=== PATIENT | male | born 1945 | race Caucasian/White ===

== ENCOUNTER → 2017-10-17 | Outpatient (CLI) | payer BC ==
[2017-10-17 13:33] LABS: ALBUMIN 3.7 gm/dl (3.4-5.0); ALKALINE PHOSPHATASE 64 U/L (45-117); ALT/SGPT 24 U/L (12-78); AST/SGOT 28 U/L (15-37); BLOOD UREA NITROGEN 19 mg/dl (7-18); CALCIUM 8.6 mg/dl (8.5-10.1); CARBON DIOXIDE 26 mmol/L (21-32); CHOLESTEROL 240 mg/dl (0-200); CREATININE 1.08 mg/dl (0.60-1.40); GLUCOSE 94 mg/dl (70-99); LDL CHOLESTEROL CALCULATED 156 mg/dl; POTASSIUM 4.2 mmol/L (3.5-5.1); SODIUM 137 mmol/L (136-145); TOTAL PROTEIN 7.5 gm/dl (6.4-8.2)
== END | disposition home or self-care (01) ==
LOC: C.LABMFLN 08:40
PROVIDERS: ATTEND Family Medicine
DX: I10 Essential (primary) hypertension (principal); E78.00 Pure hypercholesterolemia, unspecified; E03.9 Hypothyroidism, unspecified

== ENCOUNTER 2020-12-13 12:05 | Observation (INO) ==
--- NOTE | 2020-11-23 14:41 | PAT Medication Instructions ---
Medication Instructions Date of Service November 23, 2020 Home Medications Medication Instructions Recorded cyclobenzaprine 10 mg tablet 10 mg PO DAILY PRN #90 tab 02/11/19 hydrocodone 5 mg-acetaminophen 325 1 tab PO Q8H PRN #14 tab 10/06/20 mg tablet meloxicam 7.5 mg tablet 7.5 mg PO BID PRN #60 tab 10/08/20 tramadol 50 mg tablet 50 mg PO QID PRN #60 tab 11/12/20 cyclobenzaprine 10 mg tablet 10 mg PO DAILY PRN glucosamine sulfate 2KCl 1,000 mg tablet 2,000 mg PO DAILY omega 7-xwb-kny-fish oil 1,000 mg (120 mg-180 mg) capsule 1 cap PO QAM hydrocodone 5 mg-acetaminophen 325 mg tablet 1 tab PO Q8H PRN meloxicam 7.5 mg tablet 7.5 mg PO BID PRN hydrochlorothiazide 25 mg PO QAM levothyroxine 50 mcg PO QAM losartan 100 mg PO QAM tramadol 50 mg tablet 50 mg PO QID PRN ASK your surgeon for instructions meloxicam 7.5 mg tablet 7.5 mg PO BID PRN STOP taking 2 weeks before surgery (or as soon as possible if surgery is within 2 weeks) glucosamine sulfate 2KCl 1,000 mg tablet 2,000 mg PO DAILY omega 6-fkn-lgo-fish oil 1,000 mg (120 mg-180 mg) capsule 1 cap PO QAM DO NOT take the morning of surgery cyclobenzaprine 10 mg tablet 10 mg PO DAILY PRN hydrochlorothiazide 25 mg PO QAM losartan 100 mg PO QAM Take morning of surgery With a small sip of water, OTHERWISE NOTHING TO EAT OR DRINK AFTER MIDNIGHT: hydrocodone 5 mg-acetaminophen 325 mg tablet 1 tab PO Q8H PRN (okay to take up to 4 hours prior to surgery if needed) levothyroxine 50 mcg PO QAM tramadol 50 mg tablet 50 mg PO QID PRN (okay to take up to 4 hours prior to surgery if needed) Take evening before surgery cyclobenzaprine 10 mg tablet 10 mg PO DAILY PRN (if needed) hydrocodone 5 mg-acetaminophen 325 mg tablet 1 tab PO Q8H PRN (if needed) tramadol 50 mg tablet 50 mg PO QID PRN (if needed) Other Notes If you have any questions please call us at [phone] or [phone] or [phone] or [phone]
--- NOTE | 2020-11-25 10:13 | Anesthesiology Consultation ---
Date of Service November 25, 2020 Assessment & Plan (1) Encounter for pre-operative examination: COVID screening: Per assessment on 11/25: Travel screen negative, no known COVID- 19 positive contacts or current COVID-19 related symptoms. Patient vaccinated. Surgeon arranging preop COVID testing. Awaiting results. Chart Review Chart Review: Acceptable Risk for Surgery (pending surgeon-ordered PCP clearance) and Patient seen in Pre Admission Testing Teaching & Discussion Pre-Anesthesia Teaching/Discussion Notes: Instructed NPO after midnight before surgery,except medications with 15 cc of water. Medication instructions provided according to the PAT guidelines. History Surgery Operation Date: 12/13/20 11:10 Proposed Procedures p Right Reversed Total Shoulder Arthroplasty - Lex Tovar MD Height/Weight Height: 5 ft 8 in Weight: 89.2 kg Allergies Allergy/AdvReac Type Severity Reaction Status Date / Time Penicillins Allergy Hives Verified 11/25/20 10:22 Medications Home Medications Medication Instructions Recorded Confirmed Last Taken cyclobenzaprine 10 mg tablet 10 mg PO DAILY PRN #90 tab 02/11/19 11/11/20 Unknown glucosamine sulfate 2KCl 1,000 mg 2,000 mg PO DAILY tab 08/05/19 11/11/20 Unknown tablet omega 3-ily-nsj-fish oil 1,000 mg 1 cap PO QAM 08/05/19 11/11/20 Unknown (120 mg-180 mg) capsule hydrocodone 5 mg-acetaminophen 325 1 tab PO Q8H PRN #14 tab 10/06/20 11/11/20 Unknown mg tablet meloxicam 7.5 mg tablet 7.5 mg PO BID PRN #60 tab 10/08/20 11/11/20 Unknown hydrochlorothiazide 25 mg PO QAM 11/11/20 11/11/20 Unknown levothyroxine 50 mcg PO QAM 11/11/20 11/11/20 Unknown losartan 100 mg PO QAM 11/11/20 11/11/20 Unknown tramadol 50 mg tablet 50 mg PO QID PRN #60 tab 11/12/20 Unknown Past Medical History Medical History Anemia Hx, no known hx blood transfusions Arthritis HTN (hypertension) Hypercholesterolemia Hypothyroidism Parotid mass per records, pt denies RLS (restless legs syndrome) Exercise / Class Metabolic Activity II 4-5 Yardwork/Stairs/Walk up hill (one FS (no CP, no SOB)) Past Family History Family History Grandmother Alzheimer disease Mother Cancer Coronary heart disease Lung cancer Heart disease Hypertension Myocardial infarction Grandfather Rheumatoid arthritis Denies family history of Sudden SIDS (sudden infant syndrome) Ovarian cancer Prostate cancer Diabetes Deep vein thrombosis Osteoporosis Dyslipidemia Cerebral aneurysm Bipolar disorder Clotting disorder Crohn's disease Dementia Depression Kidney disease Osteoarthritis Breast cancer Schizophrenia Congenital kidney disease Gestational diabetes COPD (chronic obstructive pulmonary disease) Colorectal cancer Pulmonary embolism Lung disease Ulcerative colitis Colonic polyp Stroke Asthma Cystic kidney disease Past Surgical History Surgical History H/O colonoscopy History of back surgery lumbar fusion Past Anesthesia History No Hx of Anesthesia Complications and No Family Hx of Anesthesia Complications History of PONV No Hx of PONV and No Hx of Motion Sickness Social History Smoking Status: Never smoker Do You Dip or Chew Tobacco: No Hx Alcohol Use: Yes Alcohol type: wine alcohol intake frequency: a few times a month Hx Substance Use: No substance use type: does not use Review of Systems Patient denies chest pain, shortness of breath, dyspnea on exertion, fever, chills, cough, wheezing, palpitations. Physical Exam Vital Signs VITALS BP 103/58 > BP typically low-normal range per patient's P 51 TEMP 98.3 SP02 94%RA RESP 16 PHYSICAL Full cervical extension range of motion. Full TMJ range of motion. TMD 4 finger breaths Mallampati Score 2 Dentition: intact, worn teeth Lungs: clear throughout to auscultation Cardiac: regular rate and rhythm, no murmurs noted Spine: normal Carotid arteries: negative bruit Extremities: no edema Short vilchis Lab Results Anesthesia Preop Results Results Anesthesia Widget: WBC 7.71 K/uL (4.8-10.8) 11/25/20 Hgb 13.9 g/dL (14.0-18.0) L 11/25/20 Hct 41.8 % (42-52) L 11/25/20 Plt 225 K/uL (130-400) 11/25/20 Na 137 mmol/L (136-145) 11/25/20 K 4.2 mmol/L (3.5-5.1) 11/25/20 Cl 103 mmol/L (98-107) 11/25/20 CO2 32 mmol/L (21-32) 11/25/20 BUN 21 mg/dl (7-18) H 11/25/20 Creat 1.34 mg/dl (0.6-1.4) 11/25/20 Glucose Level 112 mg/dl (70-99) H 11/25/20 PT 10.0 Seconds (9.0-12.0) 11/25/20 PTT 25.9 Seconds (21.0-31.0) 11/25/20 INR 1.0 (0.9-1.1) 11/25/20 HA1c 6.0 % (4.5-5.6) H 11/25/20 Urine Color Yellow 11/25/20 Urine Appearance Clear (Clear) 11/25/20 Urine pH 5.5 (4.5-7.5) 11/25/20 Urine Specific [place] 1.020 (1.000-1.030) 11/25/20 Urine Protein Negative (Negative) 11/25/20 Urine Glucose (UA) Negative (Negative) 11/25/20 Urine Ketones Negative (Negative) 11/25/20 Urine Blood Negative (Negative) 11/25/20 Urine Nitrite Negative (Negative) 11/25/20 Urine Bilirubin Negative (Negative) 11/25/20 Urine Urobilinogen Negative (Negative) 11/25/20 Urine Leukocyte Esterase Negative (Negative) 11/25/20 Blood Type A Positive 11/25/20 Antibody Screen NEGATIVE 11/25/20 Testing Electrocardiogram Date: 11/25/20 Findings: + SB @ (53) Chest X-Ray Date: 11/25/20 FINDINGS: The heart is borderline enlarged. There is no failure. There is no focal pulmonary consolidation. There are no significant pleural effusions. Opacities projected the right lung base and through the hepatic shadow, or to correspond to areas of pleural calcification and rib deformity on the lateral view. IMPRESSION: Borderline cardiomegaly. No evidence of focal pulmonary consolidation. Right basilar opacities which appear to correspond to areas of pleural calcification and rib deformity.
--- NOTE | 2020-12-10 21:55 | History & Physical Report ---
Date of Service December 10, 2020 Assessment & Plan (1) Rotator cuff arthropathy of right shoulder: Plan: Treatment options discussed with patient. He has failed conservative measures. He has significant pain and dysfunction interfering with his daily activities and would like to proceed with surgical intervention. Risks, benefits and alternatives to surgery including but not limited to infection, DVT, pain, stiffness, need for revision surgery, damage to blood vessels, damage to nerves, PE, , were discussed with the patient and they wish to proceed. Plan on right reverse total shoulder arthroplasty at [facility] on 12/13/20. All questions answered. He will follow up post operatively. History of Present Illness Chief Complaint: Right shoulder pain Primary Care Provider: Win De Leon DO 75 year old male with PMHx for HTN, high cholesterol, hypothyroidism, RLS presents with ongoing right shoulder pain. He suffered a fall and had an acute on chronic type injury with a massive retracted rotator cuff tear. He presents for surgical intervention. Patient denies headaches, sweats, fevers, chills, double vision, blurred vision, cough, sore throat, dysphagia, chest pain, sob, wheezing, n/v/d/c, numbness, tingling, fatigue, urinary symptoms, mood disorders. ROS positive for right shoulder pain and stiffness. Allergies Allergy/AdvReac Type Severity Reaction Status Date / Time Penicillins Allergy Hives Verified 11/29/20 13:11 Home Medications Medication Instructions Recorded Confirmed Type cyclobenzaprine 10 mg tablet 10 mg PO DAILY PRN #90 tab 02/11/19 11/29/20 Rx glucosamine sulfate 2KCl 1,000 mg 2,000 mg PO DAILY tab 08/05/19 11/29/20 History tablet (Glucosamine Relief) omega 3-gvp-hle-fish oil 1,000 mg 1 cap PO QAM 08/05/19 11/29/20 History (120 mg-180 mg) capsule (Fish Oil) hydrocodone 5 mg-acetaminophen 325 1 tab PO Q8H PRN #14 tab 10/06/20 11/29/20 Rx mg tablet meloxicam 7.5 mg tablet 7.5 mg PO BID PRN #60 tab 10/08/20 11/29/20 Rx hydrochlorothiazide 25 mg tablet 25 mg PO QAM 11/11/20 11/29/20 History levothyroxine 50 mcg tablet 50 mcg PO QAM 11/11/20 11/29/20 History losartan 100 mg tablet 100 mg PO QAM 11/11/20 11/29/20 History tramadol 50 mg tablet 50 mg PO QID PRN #60 tab 11/12/20 11/29/20 Rx Past Med/Surg History Medical History Anemia Hx, no known hx blood transfusions Arthritis HTN (hypertension) Hypercholesterolemia Hypothyroidism Parotid mass per records, pt denies RLS (restless legs syndrome) Surgical History H/O colonoscopy History of back surgery lumbar fusion Family History Grandmother Alzheimer disease Mother Cancer Coronary heart disease Lung cancer Heart disease Hypertension Myocardial infarction Grandfather Rheumatoid arthritis Denies family history of Sudden SIDS (sudden syndrome) Ovarian cancer Prostate cancer Diabetes Deep vein thrombosis Osteoporosis Dyslipidemia Cerebral aneurysm Bipolar disorder Clotting disorder Crohn's disease Dementia Depression Kidney disease Osteoarthritis Breast cancer Schizophrenia Congenital kidney disease Gestational diabetes COPD (chronic obstructive pulmonary disease) Colorectal cancer Pulmonary embolism Lung disease Ulcerative colitis Colonic polyp Stroke Asthma Cystic kidney disease Social History Smoking Status: Never smoker Second Hand Exposure: No; Hx Alcohol Use: Yes Alcohol type: wine Hx Substance Use: No Preferred Language: Armenian Communication Ability: Effective Visual Impairment: No Limitations Hearing Ability: Normal Acls Specialist Required: No Beliefs That Will Affect Care: None marital status: Current Living Situation: Spouse current occupational status: retired Feels Safe at Home: Yes Childhood Exposure to Second-Hand Smoke: No Diet Comment: regular diet caffeine: Yes (1 cup of coffee) during the past year weight has: remained stable Dental Care, Regularly: Yes Physical Activity Frequency: Does not Exercise Physical Activity Frequency Comment: Hauls wood Seatbelt Use: always Sunscreen Use: No Do you think of yourself as: straight/heterosexual Assistive Devices: Glasses Review of Systems All systems reviewed & are unremarkable except as noted in HPI & below Physical Exam Constitutional: well developed and well nourished; no acute distress Eyes: PERRL, conjunctivae normal, anicteric sclerae ENMT: external ear and nose normal, oropharynx normal Neck: trachea midline, no thyromegaly Respiratory: normal respiratory effort, lungs clear to auscultation Cardiovascular: RRR, no murmur, no edema Musculoskeletal: Right shoulder: Tenderness anterolateral acromion. Crepitation with ROM. Painful active motion. FF to 60 degrees actively, abduction to 60 degrees actively, ER to 80 degrees. Positive impingement signs, cross over, lift off tests. Strength3+/5 ER, 4+/5 IR, 2+/4 abduction and FF. Skin: no rashes, warm and dry Neurologic: patellar DTR's 2+ bilat, sensation intact Psychiatric: A+Ox3, euthymic affect Results & Data ([facility]) Diagnostic Findings Right shoulder MRI demonstrates massive retracted tears of his rotator cuff. Tears to supraspinatus, infraspinatus, and subscapularis. long head biceps tendon tear X-rays demonstrate humeral head elevation. Degenerative changes greater tuberosity. AC joint arthritic change
[~2020-12-13 12:05] MED LIST: ACETAMINOPHEN 500 MG TAB PO SCH; BUPIVACAINE 0.5 % 5 MG/1 ML PF 10ML VIAL ONE; CeleBREX 200 MG CAP PO SCH; FAMOTIDINE 20 MG TAB PO SCH; GABAPENTIN 300 MG CAP PO SCH; LR 15ML/HR IV SCH; METOCLOPRAMIDE HCL 10 MG TABLET PO SCH; TRANEXAMIC ACID 1,000 MG **IV Intra-op IV SCH; TRANEXAMIC ACID 1,000 MG **IV Pre-op IV SCH; VANCOMYCIN HCL 1,250 MG in SODIUM CHLORIDE 0.9% 250 ML IV SCH; dexAMETHasone 4 MG TAB PO SCH
[2020-12-13] MEDS ORDERED: fentaNYL citrate 100 MCG/2 ML VIAL ONE ×2 (12:46→15:23)
[2020-12-13] MEDS ORDERED: fentaNYL citrate 100 MCG/2 ML VIAL IV PRN (13:57)
[2020-12-13] MEDS ORDERED: ONDANSETRON INJ 2 MG/ML 2 ML VIAL IV PRN ×2 (13:57→20:10)
[2020-12-13] MEDS ORDERED: ATROPINE SULFATE 0.1 MG/ML 10ML SYR IV PRN (13:57)
[2020-12-13] MEDS ORDERED: ePHEDrine sulfate 50 MG/ML AMP IV PRN (13:57)
--- NOTE | 2020-12-13 14:47 | History & Physical Bridge Note ---
Date of Service December 13, 2020 History & Physical Bridge Note I have examined the patient, reviewed the History & Physical and in the interval since the performance of the History & Physical I have noted the following changes of clinical significance: no changes noted
[2020-12-13] MEDS ORDERED: MIDAZOLAM HCL 1 MG/ML 2ML VIAL ONE (14:49)
[2020-12-13] MEDS ORDERED: LIDOCAINE 2% 2 ML VIAL/AMP(20MG/ML) INFIL ONE (15:15)
[2020-12-13] MEDS ORDERED: DEXAMETHASONE SOD INJ 4 MG/ML VIAL ONE (15:36)
[2020-12-13] MEDS ORDERED: SUCCINYLCHOLINE CHLORIDE 20 MG/ML 10 ML VIAL IV ONE (15:36)
[2020-12-13] MEDS ORDERED: ROCURONIUM BROMIDE 10 MG/ML 5 ML VIAL IV ONE (15:36)
[2020-12-13] MEDS ORDERED: ONDANSETRON INJ 2 MG/ML 2 ML VIAL ONE (15:36)
[2020-12-13] MEDS ORDERED: ePHEDrine sulfate 50 MG/ML SYR ONE (17:08)
[2020-12-13] MEDS ORDERED: LARYING-O-JET KIT (LTA) ONE (17:08)
--- NOTE | 2020-12-13 19:09 | Operative Report ---
Post Operative Report Pre & Post Diagnosis Operation Date: 12/13/20 14:35 Pre-Op Diagnosis: Osteoarthritis Right Shoulder, rotator cuff arthropathy, irreparable rotator cuff tear, biceps tendon rupture Post-Op Diagnosis: Osteoarthritis Right Shoulder, rotator cuff arthropathy, irreparable rotator cuff tear, biceps tendon rupture I identified the patient and participated in the time-out.: Yes Procedure Operation Date: 12/13/20 14:35 Actual Procedures p Right Reversed Total Shoulder Arthroplasty(Right) - Lex Tovar MD Surgeon Lex Tovar MD Trial Judge Hussein CHRISTENSEN Estimated Blood Loss 45 Findings Consistent with Post-Op Diagnosis Specimens Humeral head Drains 2 Hemovac Anesthesia Type General Regional Complications none Disposition Disposition: Recovery Room Indications 75-year-old male with chronic progressive osteoarthritis with rotator cuff arthropathy shoulder weakness and disability. X-rays demonstrate rotator cuff arthropathy proximal migration of the humerus and hypertrophic AC joint osteoarthritis. MRI demonstrates anterior subluxation of the humerus secondary to a subscapularis tendon tear upper subscapularis with the supraspinatus and infraspinatus rotator cuff tears with retraction. There are glenohumeral osteoarthritic changes. Patient had a ruptured biceps tendon. Description of Procedure The patient was taken to the operating room and anesthetized under regional block and general anesthetic. The patient was positioned on the operating table in a 30 beach chair position with a towel roll under the medial border of the right scapula. The arm was draped free to be able to manipulate the shoulder as needed. The right upper extremity was prepped and draped in usual sterile f ashion. Exam demonstrated crepitation with range of motion. Forward flexion 150 degrees abduction 120 degrees external rotation 80 degrees. An anterior deltopectoral approach was performed. A longitudinal incision was made in the deltopectoral interval. The skin was incised sharply. Subcutaneous flaps were elevated off the fascia. The cephalic vein was dissected out and retracted lateral with the deltoid. The clavipectoral fascia was divided at the lateral margin of the conjoined tendon and extended up to the CA ligament. The following findings were noted: There was a large bursal collection in the subacromial space extending over the anterior subscapularis. There was some scarred biceps tendon still in the groove but was ruptured proximally. The lower 55% of the subscapularis was still intact. The upper subscapularis tendon was ruptured and this extended to a large superior rotator cuff tear both the supraspinatus and the infraspinatus which were retracted medially. There were arthritic changes in the glenohumeral joint with proximal migration of the humerus.. The upper centimeter of the pectoralis was released for inferior exposure. The subscapularis tendon was taken down off the lesser tuberosity using a subperiosteal peel type dissection. A #1 Vicryl traction suture was placed into the free end of the subscapularis tendon and capsule. The circumflex vessels were identified tied off with silk ties and divided laterally. The subscapularis tendon was then taken down off of the lesser tuberosity subperiosteally and subperiosteal dissection was performed along the neck of the humerus as the arm is gradually externally rotated exposing the humeral head. The rotator interval was released down to the level of the glenoid. The humeral head findings demonstrated arthritic changes mainly superior on the head from proximal migration but inferiorly there were no osteophytes.. A Fukuda retractor was placed into the joint retracting the humeral head posterior. Glenoid findings demonstrated grade 2 osteoarthritis intact articular cartilage on the glenoid. The labrum was resected. an anterior-inferior and posterior inferior capsular release were performed with electrocautery and a John elevator on bone. Attention was then taken to the humeral preparation. The cutting guide was placed into the humeral head. It was positioned at 20 of retroversio n. Oscillating saw was used to resect the humeral head giving the cut above the level of the posterior rotator cuff insertion site. The humerus was then prepared for the stem. I used the [facility]. The sizing broaches were used followed by trial broaches up to a size 5B which had the appropriate fit and fill. The appropriate sized cut protector was placed. The humerus was then retracted posterior to the glenoid. The glenoid was sized for a 29 baseplate. The guide for the baseplate was positioned in a 10 inferior tilt and the central drill hole was made. The reamer for the 29 baseplate was used. The central drill was widened for the peg. The aequalis hydroxyapatite- coated 29 mm baseplate was impacted into position. The base plate was transfixed with superior and inferior locking screws and anterior and posterior compression screws with stable fixation. The fan reamer was used for the 42 millimeter glenoid sphere. After irrigation the 42 mm glenoid sphere was impacted onto the baseplate and the screw was tightened. Attention was taken back to the humerus. The cut protector was removed and the +0 high offset humeral tray trial was assembled to the trial stem rotated appropriately to get bony coverage and then screwed in position. A trial reduction was performed. A +6, 42 trial insert demonstrated good stability and no shuck. The trials were removed. 3 drill holes are made into the harder bone in the bicipital groove area and 3 #5 FiberWire sutures were placed transosseously. The canal was irrigated with pulsatile lavage saline solution. The final component was assembled. The final component was ascend flex 5B long PTC stem assembled to the plus or high offset tray with a 42+6 reversed insert. This was then impacted into the humerus with a tight press-fit. It was reduced to the glenoid sphere. Stability was verified. Subscapularis was repaired with the #5 FiberWire sutures using Abrahan-Cleve suture technique. Lateral row soft tissue repair was performed with #2 FiberWire [id number] sutures. The pectoralis was repaired with #2 FiberWire [id number] sutures. The arm was taken through a range of motion which demonstrated 150 degrees forward flexion 80 degrees abduction 55 to 60 degrees of external rotation. The implant was stable through the range of motion tested. The wound was copiously irrigated. 2 H emovac drains were placed. The deltopectoral interval was closed with [id number] #1 Vicryl sutures. The subcutaneous tissues were closed with 2- 0 Vicryl sutures. The skin was closed with iain. Sterile dressings were applied and a shoulder immobilizer. Hussein CHRISTENSEN my physician purchasing administrative assistant assisted in the procedure to the entire procedure including patient positioning arm positioning prepping and draping soft tissue retraction instrument management suture management and performed the subcutaneous and skin closure and will participate in the postoperative care of the patient. I attest to the content of the Intraoperative Record and any orders documented therein. Any exceptions are noted below.
--- NOTE | 2020-12-13 19:53 | Anesthesiology Progress Note ---
Date of Service December 13, 2020 Anesthesia Post Procedure Vital Signs Vital Signs: Temp Pulse Pulse Resp BP Pulse Ox 12/13/20 19:45 36.2 C L 79 20 162/99 H 96 12/13/20 19:35 84 12 170/92 H 94 12/13/20 19:25 85 15 177/97 H 99 12/13/20 19:15 88 14 172/86 H 97 12/13/20 19:05 36.2 C L 93 H 20 179/77 H 98 12/13/20 16:28 57 L 20 121/66 98 12/13/20 16:20 55 L 20 130/66 98 12/13/20 16:10 56 L 20 123/71 97 12/13/20 16:00 58 L 22 104/60 98 12/13/20 15:50 72 22 104/60 97 12/13/20 15:40 57 L 22 108/61 97 12/13/20 15:30 56 L 20 117/66 99 12/13/20 12:46 36.9 C 62 20 177/84 H 94 Transfer of Care Handoff Completed per policy Notes Mental Status: alert / awake / arousable and participated in evaluation Patient Amnestic to Procedure: Yes Nausea / Vomiting: adequately controlled Pain: adequately controlled Airway Patency, RR, SpO2: stable & adequate BP & HR: stable & adequate Hydration State: stable & adequate Anesthetic Complications: no major complications apparent
[2020-12-13] MEDS ORDERED: HYDROCODONE/ACETAMOPHEN 5/325MG TAB PO PRN (20:10)
[2020-12-13] MEDS ORDERED: VANCOMYCIN CONSULT ACTIVE PRN (20:10)
[2020-12-13] MEDS ORDERED: bisacodyL 10 MG SUPP PR PRN (20:10)
[2020-12-13] MEDS ORDERED: HYDROmorphone INJ 0.5 MG/0.5 ML SYR IV PRN (20:10)
[2020-12-13] MEDS ORDERED: MAGNESIUM HYDROXIDE SUSP 30 ML UDC PO PRN (20:10)
[2020-12-13] MEDS ORDERED: SODIUM CHLORIDE 0.9% 1000ML 1,000 ML IV SCH (20:10)
[2020-12-13] MEDS ORDERED: NALOXONE HCL 0.4 MG/1 ML VIAL/CARP IV PRN (20:10)
[2020-12-13] MEDS ORDERED: SENNA 8.6 MG TAB PO SCH (21:00)
[2020-12-13] MEDS: KETOROLAC TROMETHAMINE 15 MG/ML VIAL IV SCH (21:32)
[2020-12-13] MEDS: DOCUSATE SODIUM 100 MG CAP PO SCH (21:32)
--- NOTE | 2020-12-13 21:50 | XRay Report ---
XR shoulder RT min 2V routine CLINICAL HISTORY: Post shoulder surgery COMPARISON: None. DISCUSSION: Metallic prosthetic joint is seen projecting to the anatomical region of the right shoulder. Surgical drain and skin iain are seen. Degenerative changes of acromioclavicular joint are seen. Moderate right pleural effusion associated with atelectasis/infiltrate at the right base is seen. IMPRESSION: 1. Postoperative changes as detailed above. 2. Moderate right pleural effusion associated with atelectasis/infiltrate at the right base. ACT 112: Negative or not required by law. The above report was generated using voice recognition software. It may contain grammatical, syntax o r spelling errors. Electronically signed by: Keira Prince DO 12/13/2020 9:49 PM
[2020-12-14] MEDS ORDERED: VANCOMYCIN HCL 1,250 MG in SODIUM CHLORIDE 0.9% 250 ML IV SCH (01:00)
[2020-12-14] MEDS: KETOROLAC TROMETHAMINE 15 MG/ML VIAL IV SCH ×2 (04:20→08:48)
[2020-12-14] MEDS ORDERED: LEVOTHYROXINE SODIUM 50 MCG TABLET PO SCH (06:30)
[2020-12-14 06:57] LABS: Hematocrit (blood only) 37.3 % (42-52); Hemoglobin 12.5 g/dL (14.0-18.0); Immature Granulocytes # (auto) 0.03 K/uL (0.00-0.02); Immature Granulocytes % (auto) 0.2 %; Lymphocytes % (auto) 5.1 %; Mean Corpuscular Hemoglobin 30.3 pg (25-34); Mean Corpuscular Hgb Conc 33.5 g/dL (32-36); Mean Corpuscular Volume 90.5 fL (80-100); Mean Platelet Volume 10.7 fL (7.4-10.4); Monocytes # (auto) 0.67 K/uL (0.11-0.59); Monocytes % (auto) 4.3 %; Neutrophils # (auto) 14.23 K/uL (1.4-6.5); Neutrophils % (auto) 90.4 %; Platelet Count 195 K/uL (130-400); RDW Coefficient of Variation 12.8 % (11.5-14.5); RDW Standard Deviation 42.6 fL (36.4-46.3); Red Blood Count 4.12 M/uL (4.7-6.1); White Blood Count 15.73 K/uL (4.8-10.8)
[2020-12-14 07:26] LABS: BUN Creatinine Ratio 19.5 (10-20); Calcium 8.4 mg/dl (8.5-10.1); Creatinine Clr Calc Pharmacy 53.6 ml/min; Est GFR (African American) 62.3 ml/min; Est GFR (Non-African American) 53.8 ml/min; Potassium 3.7 mmol/L (3.5-5.1)
--- NOTE | 2020-12-14 07:46 | Orthopedic Progress Note ---
Date of Service December 14, 2020 Assessment & Plan (1) Rotator cuff arthropathy of right shoulder: Plan: Postop day 1 status post right reverse total shoulder arthroplasty PT/OT protocols. Nonweightbearing on the right upper extremity. No formal physical therapy at this time other than shoulder shrugs, pendulum exercises etc. DVT prophylaxis-aspirin p.o. daily, SCDs. Pain management as written. Mild leukocytosis. Patient is asymptomatic at this time. Likely secondary to preoperative steroids and or surgical stress. DC planning-patient is planning for discharge to home. No formal therapy to start until patient seen in office for his follow-up visit. Admission and Anticipated Discharge Date Admission Date: December 13, 2020 Subjective Postop day 1 Patient is currently sitting up in his chair at the bedside. Awake and alert. No complaints. States he feels his block is still working. Denies shortness of breath, chest pain, lightheadedness. Physical Exam Physical Exam: Dressings are clean, dry, and intact. Hemovac drain present and functioning. 50 mL from the previous shift. Patient states he is having some difficulty moving the arm however he has better range of motion of his right wrist and fingers this morning. 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 Cap refill is less than 2 seconds. Sling is in place. Results & Data ([facility]) Vital Signs (Past 12 Hours) Vital Signs Temp Pulse Pulse Resp BP Pulse Ox 12/14/20 07:14 36.4 C L 74 17 138/79 95 12/14/20 02:33 36.4 C L 75 16 136/76 92 12/13/20 23:14 36.7 C 76 16 115/67 92 12/13/20 22:05 36.3 C L 75 16 145/65 H 97 12/13/20 21:05 36.4 C L 81 16 145/78 H 93 12/13/20 20:48 36.5 C 71 18 137/76 93 12/13/20 20:05 36.5 C 94 H 18 168/81 H 95 12/13/20 19:45 36.2 C L 79 20 162/99 H 96 Diagnostic Findings Laboratory Results WBC 15.73 K/uL (4.8-10.8) H 12/14/20 06:21 RBC 4.12 M/uL (4.7-6.1) L 12/14/20 06:21 Hgb 12.5 g/dL (14.0-18.0) L 12/14/20 06:21 Hct 37.3 % (42-52) L 12/14/20 06:21 MCV 90.5 fL (80-100) 12/14/20 06:21 MCH 30.3 pg (25-34) 12/14/20 06:21 MCHC 33.5 g/dL (32-36) 12/14/20 06:21 RDW Std Deviation 42.6 fL (36.4-46.3) 12/14/20 06:21 RDW Coeff of Jc 12.8 % (11.5-14.5) 12/14/20 06:21 Plt Count 195 K/uL (130-400) 12/14/20 06:21 MPV 10.7 fL (7.4-10.4) H 12/14/20 06:21 Immature Gran % (Auto) 0.2 % 12/14/20 06:21 Neut % (Auto) 90.4 % 12/14/20 06:21 Lymph % (Auto) 5.1 % 12/14/20 06:21 Thayer % (Auto) 4.3 % 12/14/20 06:21 Eos % (Auto) 0.0 % 12/14/20 06:21 Baso % (Auto) 0.0 % 12/14/20 06:21 Neut # (Auto) 14.23 K/uL (1.4-6.5) H 12/14/20 06:21 Lymph # (Auto) 0.80 K/uL (1.2-3.4) L 12/14/20 06:21 Thayer # (Auto) 0.67 K/uL (0.11-0.59) H 12/14/20 06:21 Eos # (Auto) 0.00 K/uL (0-0.5) 12/14/20 06:21 Baso # (Auto) 0.00 K/uL (0-0.2) 12/14/20 06:21 Immature Gran # (Auto) 0.03 K/uL (0.00-0.02) H 12/14/20 06:21 Sodium 138 mmol/L (136-145) 07/20/21 06:21 Potassium 3.7 mmol/L (3.5-5.1) 12/14/20 06:21 Chloride 104 mmol/L (98-107) 12/14/20 06:21 Carbon Dioxide 25 mmol/L (21-32) 12/14/20 06:21 Anion Gap 9.0 (3-11) 12/14/20 06:21 BUN 25 mg/dl (7-18) H 12/14/20 06:21 Creatinine 1.30 mg/dl (0.6-1.4) 12/14/20 06:21 Est Cr Clr Drug Dosing 53.6 ml/min 12/14/20 06:21 Est GFR ( Amer) 62.3 ml/min 12/14/20 06:21 Est GFR (Non-Af Amer) 53.8 ml/min 12/14/20 06:21 BUN/Creatinine Ratio 19.5 (10-20) 12/14/20 06:21 Glucose 145 mg/dl (70-99) H 12/14/20 06:21 Calcium 8.4 mg/dl (8.5-10.1) L 12/14/20 06:21 COVID-19 Eval Order Covid19 IDNow [facility] 12/13/20 Unknown SARS-CoV-2, RNA, NAAT NEGATIVE (NEGATIVE) 12/13/20 Unknown Impressions Shoulder X-Ray 12/13/20 19:13 XR shoulder RT min 2V routine CLINICAL HISTORY: Post shoulder surgery COMPARISON: None. DISCUSSION: Metallic prosthetic joint is seen projecting to the anatomical region of the right shoulder. Surgical drain and skin iain are seen. Degenerative changes of acromioclavicular joint are seen. Moderate right pleural effusion associated with atelectasis/infiltrate at the right base is seen. IMPRESSION: 1. Postoperative changes as detailed above. 2. Moderate right pleural effusion associated with atelectasis/infiltrate at the right base. ACT 112: Negative or not required by law. The above report was generated using voice recognition software. It may contain grammatical, syntax or spelling errors. Electronically signed by: Keira Prince DO 12/13/2020 9:49 PM
[2020-12-14] MEDS: DOCUSATE SODIUM 100 MG CAP PO SCH (08:46)
[2020-12-14] MEDS ORDERED: hydroCHLOROthiazide 25 MG TAB PO SCH (09:00)
[2020-12-14] MEDS ORDERED: ASPIRIN 325 MG ECTAB PO SCH (09:00)
[2020-12-14] MEDS ORDERED: MULTIVITAMIN TAB PO SCH (09:00)
[2020-12-14] MEDS ORDERED: LOSARTAN POTASSIUM 50 MG TAB PO SCH (09:00)
--- NOTE | 2020-12-14 11:06 | Hospitalist Consultation ---
Date of Consultation December 14, 2020 Assessment & Plan (1) Rotator cuff tear: POD #1 for right revised total shoulder arthroplasty, continue postoperative management per primary team (2) Gait difficulty: Will consider physical therapy prior to discharge to assess potential gait abnormality. (3) RLS (restless legs syndrome): I do not see any medications in his outpatient list that would be specific further this medical issue. Can continue outpatient follow-up for this particular issue. (4) Hypothyroidism: Continue levothyroxine 50 mcg daily (5) Hypercholesterolemia: Patient is on fish oil 1 capsule daily. Status similar is not noted on his medication list. As above, can follow as an outpatient. (6) HTN (hypertension): Patient is only on hydrochlorothiazide for this issue. Last blood pressure documented 121/71, continue to monitor and adjust medications as necessary. Thank you for the consult, will continue to follow while the patient remains here in the hospital. History of Present Illness Reason for Consultation: Medical management Requesting Physician: Guy Attending Physician: Lex Tovar MD History of Present Illness This is a 75-year-old male with past medical history of RLS, hypothyroidism, hypertension, hypercholesterolemia that presented for elective total right shoulder arthroplasty with Dr. Tovar. This was performed 12/13. Our service was consulted for medical management. Patient was seen and examined today in his room. He tells me that the pain in his right extremity is minimal he is otherwise doing well. I did discuss his medical issues with him but he is a somewhat poor historian. His main concern is that he is expressed some unsteadiness with his gait. He attributes this for his previous fall that started his right shoulder injury. He denies any chest p ain, shortness of breath, nausea, vomiting, vertigo, headache, fever or chills. Allergies Allergy/AdvReac Type Severity Reaction Status Date / Time Penicillins Allergy Hives Verified 12/13/20 12:40 Home Medications Medication Instructions Recorded Confirmed Type cyclobenzaprine 10 mg tablet 10 mg PO DAILY PRN #90 tab 02/11/19 12/13/20 Rx glucosamine sulfate 2KCl 1,000 mg 2,000 mg PO DAILY tab 08/05/19 12/13/20 History tablet (Glucosamine Relief) omega 0-stw-ryu-fish oil 1,000 mg 1 cap PO QAM 08/05/19 12/13/20 History (120 mg-180 mg) capsule (Fish Oil) hydrocodone 5 mg-acetaminophen 325 1 tab PO Q8H PRN #14 tab 10/06/20 12/13/20 Rx mg tablet meloxicam 7.5 mg tablet 7.5 mg PO BID PRN #60 tab 10/08/20 12/13/20 Rx hydrochlorothiazide 25 mg tablet 25 mg PO QAM 11/11/20 12/13/20 History levothyroxine 50 mcg tablet 50 mcg PO QAM 11/11/20 12/13/20 History losartan 100 mg tablet 100 mg PO QAM 11/11/20 12/13/20 History aspirin 325 mg tablet,delayed 325 mg PO QAM 30 Days #30 tab 12/14/20 Rx release (Ecotrin) hydrocodone 5 mg-acetaminophen 325 1 - 2 tab PO Q6H PRN #30 tab MDD 8 12/14/20 Rx mg tablet tabs polyethylene glycol 3350 17 gram 17 g PO DAILY PRN #5 ea 12/14/20 Rx oral powder packet (Miralax) Patient History Medical History Anemia Hx, no known hx blood transfusions Arthritis HTN (hypertension) Hypercholesterolemia Hypothyroidism Parotid mass per records, pt denies RLS (restless legs syndrome) Surgical History H/O colonoscopy History of back surgery lumbar fusion Family History Grandmother Alzheimer disease Mother Cancer Coronary heart disease Lung cancer Heart disease Hypertension Myocardial infarction Grandfather Rheumatoid arthritis Denies family history of Sudden SIDS (sudden infant syndrome) Ovarian cancer Prostate cancer Diabetes Deep vein thrombosis Osteoporosis Dyslipidemia Cerebral aneurysm Bipolar disorder Clotting disorder Crohn's disease Dementia Depression Kidney disease Osteoarthritis Breast cancer Schizophrenia Congenital kidney disease Gestational diabetes COPD (chronic obstructive pulmonary disease) Colorectal cancer Pulmonary embolism Lung disease Ulcerative colitis Colonic polyp Stroke Asthma Cystic kidney disease Social History Smoking Status: Never smoker Second Hand Exposure: No; Do You Dip or Chew Tobacco: No; Tobacco Cessation Education Requested by Patient: No Hx Alcohol Use: Yes Alcohol type: wine Hx Substance Use: No Preferred Language: Belarusian Communication Ability: Effective Visual Impairment: No Limitations Hearing Ability: Normal Transfer Specialist Required: No Beliefs That Will Affect Care: None marital status: Current Living Situation: Spouse current occupational status: retired Other Information That Helps Us Care for You: No Feels Safe at Home: Yes Safety Concerns: Feels Safe At This Time Childhood Exposure to Second-Hand Smoke: No Diet Comment: regular diet caffeine: Yes (1 cup of coffee) during the past year weight has: remained stable Dental Care, Regularly: Yes Physical Activity Frequency: Does not Exercise Physical Activity Frequency Comment: HaENOVIX wood Seatbelt Use: always Sunscreen Use: No Do you think of yourself as: straight/heterosexual Assistive Devices: Glasses Review of Systems Constitutional: no fever, no chills, no weakness, no weight loss and no weight gain Eyes: as per Subjective / HPI Respiratory: no cough, no chest congestion, no dyspnea and no dyspnea on exertion Cardiovascular: no chest pain, no orthopnea, no palpitations, no lightheadedness and no edema Gastrointestinal: no abdominal pain, no nausea, no vomiting, no constipation and no diarrhea/loose stools Musculoskeletal: no back pain, no neck pain, no joint pain, no stiffness and no myalgia Integumentary: no rash Neurologic: + unsteadiness; no gait abnormality, no falls and no generalized weakness Results & Data Results & Data ([facility]) Vital Signs (Past 12 Hours) Vital Signs Temp Pulse Resp BP Pulse Ox 12/14/20 07:14 36.4 C L 74 17 138/79 95 12/14/20 02:33 36.4 C L 75 16 136/76 92 12/13/20 23:14 36.7 C 76 16 115/67 92 Laboratory Results Laboratory Results WBC 15.73 K/uL (4.8-10.8) H 12/14/20 06:21 RBC 4.12 M/uL (4.7-6.1) L 12/14/20 06:21 Hgb 12.5 g/dL (14.0-18.0) L 12/14/20 06:21 Hct 37.3 % (42-52) L 12/14/20 06:21 MCV 90.5 fL (80-100) 12/14/20 06:21 MCH 30.3 pg (25-34) 12/14/20 06:21 MCHC 33.5 g/dL (32-36) 12/14/20 06:21 RDW Std Deviation 42.6 fL (36.4-46.3) 12/14/20 06:21 RDW Coeff of Jc 12.8 % (11.5-14.5) 12/14/20 06:21 Plt Count 195 K/uL (130-400) 12/14/20 06:21 MPV 10.7 fL (7.4-10.4) H 12/14/20 06:21 Immature Gran % (Auto) 0.2 % 12/14/20 06:21 Neut % (Auto) 90.4 % 12/14/20 06:21 Lymph % (Auto) 5.1 % 12/14/20 06:21 Grand % (Auto) 4.3 % 12/14/20 06:21 Eos % (Auto) 0.0 % 12/14/20 06:21 Baso % (Auto) 0.0 % 12/14/20 06:21 Neut # (Auto) 14.23 K/uL (1.4-6.5) H 12/14/20 06:21 Lymph # (Auto) 0.80 K/uL (1.2-3.4) L 12/14/20 06:21 Grand # (Auto) 0.67 K/uL (0.11-0.59) H 12/14/20 06:21 Eos # (Auto) 0.00 K/uL (0-0.5) 12/14/20 06:21 Baso # (Auto) 0.00 K/uL (0-0.2) 12/14/20 06:21 Immature Gran # (Auto) 0.03 K/uL (0.00-0.02) H 12/14/20 06:21 Sodium 138 mmol/L (136-145) 12/14/20 06:21 Potassium 3.7 mmol/L (3.5-5.1) 12/14/20 06:21 Chloride 104 mmol/L (98-107) 12/14/20 06:21 Carbon Dioxide 25 mmol/L (21-32) 12/14/20 06:21 Anion Gap 9.0 (3-11) 12/14/20 06:21 BUN 25 mg/dl (7-18) H 12/14/20 06:21 Creatinine 1.30 mg/dl (0.6-1.4) 12/14/20 06:21 Est Cr Clr Drug Dosing 53.6 ml/min 12/14/20 06:21 Est GFR ( Amer) 62.3 ml/min 12/14/20 06:21 Est GFR (Non-Af Amer) 53.8 ml/min 12/14/20 06:21 BUN/Creatinine Ratio 19.5 (10-20) 12/14/20 06:21 Glucose 145 mg/dl (70-99) H 12/14/20 06:21 Calcium 8.4 mg/dl (8.5-10.1) L 12/14/20 06:21 COVID-19 Eval Order Covid19 IDNow [facility] 12/13/20 Unknown SARS-CoV-2, RNA, NAAT NEGATIVE (NEGATIVE) 12/13/20 Unknown Impressions Shoulder X-Ray 12/13/20 19:13 XR shoulder RT min 2V routine CLINICAL HISTORY: Post shoulder surgery COMPARISON: None. DISCUSSION: Metallic prosthetic joint is seen projecting to the anatomical region of the right shoulder. Surgical drain and skin iain are seen. Degenerative changes of acromioclavicular joint are seen. Moderate right pleural effusion associated with atelectasis/infiltrate at the right base is seen. IMPRESSION: 1. Postoperative changes as detailed above. 2. Moderate right pleural effusion associated with atelectasis/infiltrate at the right base. ACT 112: Negative or not required by law. The above report was generated using voice recognition software. It may contain grammatical, syntax or spelling errors. Electronically signed by: Keira Prince DO 12/13/2020 9:49 PM PG Care Time/CCT Total # of Minutes Spent Total Time Spent with Patient: Total time spent is greater than 50% in coordination of care (as documented) at patient's floor/unit and/or counseling patient: Coding Level of Care Code 32184 Inpt Consult Level 3 Diagnoses RLS (restless legs syndrome) G25.81 Hypothyroidism E03.9 Hypercholesterolemia E78.00 HTN (hypertension) I10 Rotator cuff tear M75.100 Gait difficulty R26.9
--- NOTE | 2020-12-19 09:21 | Discharge Summary ---
Date of Service December 19, 2020 Admission HPI Per Admitting Provider 75 year old male with PMHx for HTN, high cholesterol, hypothyroidism, RLS presents with ongoing right shoulder pain. He suffered a fall and had an acute on chronic type injury with a massive retracted rotator cuff tear. He presents for surgical intervention. Patient denies headaches, sweats, fevers, chills, double vision, blurred vision, cough, sore throat, dysphagia, chest pain, sob, wheezing, n/v/d/c, numbness, tingling, fatigue, urinary symptoms, mood disorders. ROS positive for right shoulder pain and stiffness. Admission Exam Per Admitting Provider Physical Exam Constitutional: well developed and well nourished; no acute distress Eyes: PERRL, conjunctivae normal, anicteric sclerae ENMT: external ear and nose normal, oropharynx normal Neck: trachea midline, no thyromegaly Respiratory: normal respiratory effort, lungs clear to auscultation Cardiovascular: RRR, no murmur, no edema Musculoskeletal: Right shoulder: Tenderness anterolateral acromion. Crepitation with ROM. Painful active motion. FF to 60 degrees actively, abduction to 60 degrees actively, ER to 80 degrees. Positive impingement signs, cross over, lift off tests. Strength3+/5 ER, 4+/5 IR, 2+/4 abduction and FF. Skin: no rashes, warm and dry Neurologic: patellar DTR's 2+ bilat, sensation intact Psychiatric: A+Ox3, euthymic affect Principal Diagnosis Right shoulder Rotator cuff arthropathy Discharge Data Allergies Allergy/AdvReac Type Severity Reaction Status Date / Time Penicillins Allergy Hives Verified 12/13/20 12:40 Consultations 12/08/20 15:33 Consult Hospitalist Routine Procedures Performed Operation Date: 12/13/20 14:35 Actual Procedures p Right Reversed Total Shoulder Arthroplasty(Right) - Lex Tovar MD Ordered Studies 12/13/20 05:00 US - OR guided needle placemen Routine Hospital Course (1) Rotator cuff arthropathy of right shoulder: Addendum (Blank) Addendum December 14, 2020 16:20 noted on review of imaging that patient may have a mild/mod R pleural effusion as seen on dedicated xray of shoulder. does not appear on previous studies including CXR from earlier in the month. patient was doing well according to PA- C from primary service. denied any SOB or CP, sats of 96% on RA. unclear what is cause, should consider dedicated CXR, maybe CT of chest depending on findings. ok to follow with PCP for this. i did discuss with ortho FRANCESCA that will coordinate outpatient imaging and FU with primary. Date of Service December 14, 2020 Assessment & Plan (1) Rotator cuff arthropathy of right shoulder: Plan: Postop day 1 status post right reverse total shoulder arthroplasty PT/OT protocols. Nonweightbearing on the right upper extremity. No formal physical therapy at this time other than shoulder shrugs, pendulum exercises etc. DVT prophylaxis-aspirin p.o. daily, SCDs. Pain management as written. Mild leukocytosis. Patient is asymptomatic at this time. Likely secondary to preoperative steroids and or surgical stress. DC planning-patient is planning for discharge to home. No formal therapy to start until patient seen in office for his follow-up visit. Admission and Anticipated Discharge Date Admission Date: December 13, 2020 Subjective Postop day 1 Patient is currently sitting up in his chair at the bedside. Awake and alert. No complaints. States he feels his block is still working. Denies shortness of breath, chest pain, lightheadedness. Physical Exam Physical Exam: Dressings are clean, dry, and intact. Hemovac drain present and functioning. 50 mL from the previous shift. Patient states he is having some difficulty moving the arm however he has better range of motion of his right wrist and fingers this morning. 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 Cap refill is less than 2 seconds. [address]ling is in place. Results & Data ([facility]) Vital Signs (Past 12 Hours) Vital Signs Temp Pulse Pulse Resp BP Pulse Ox 12/14/20 07:14 36.4 C L 74 17 138/79 95 12/14/20 02:33 36.4 C L 75 16 136/76 92 12/13/20 23:14 36.7 C 76 16 115/67 92 12/13/20 22:05 36.3 C L 75 16 145/65 H 97 12/13/20 21:05 36.4 C L 81 16 145/78 H 93 12/13/20 20:48 36.5 C 71 18 137/76 93 12/13/20 20:05 36.5 C 94 H 18 168/81 H 95 12/13/20 19:45 36.2 C L 79 20 162/99 H 96 Diagnostic Findings Laboratory Results WBC 15.73 K/uL (4.8-10.8) H 12/14/20 06:21 RBC 4.12 M/uL (4.7-6.1) L 12/14/20 06:21 Hgb 12.5 g/dL (14.0-18.0) L 12/14/20 06:21 Hct 37.3 % (42-52) L 12/14/20 06:21 MCV 90.5 fL (80-100) 12/14/20 06:21 MCH 30.3 pg (25-34) 12/14/20 06:21 MCHC 33.5 g/dL (32-36) 12/14/20 06:21 RDW Std Deviation 42.6 fL (36.4-46.3) 12/14/20 06:21 RDW Coeff of Jc 12.8 % (11.5-14.5) 12/14/20 06:21 Plt Count 195 K/uL (130-400) 12/14/20 06:21 MPV 10.7 fL (7.4-10.4) H 12/14/20 06:21 Immature Gran % (Auto) 0.2 % 12/14/20 06:21 Neut % (Auto) 90.4 % 12/14/20 06:21 Lymph % (Auto) 5.1 % 12/14/20 06:21 Gordon % (Auto) 4.3 % 12/14/20 06:21 Eos % (Auto) 0.0 % 12/14/20 06:21 Baso % (Auto) 0.0 % 12/14/20 06:21 Neut # (Auto) 14.23 K/uL (1.4-6.5) H 12/14/20 06:21 Lymph # (Auto) 0.80 K/uL (1.2-3.4) L 12/14/20 06:21 Gordon # (Auto) 0.67 K/uL (0.11-0.59) H 12/14/20 06:21 Eos # (Auto) 0.00 K/uL (0-0.5) 12/14/20 06:21 Baso # (Auto) 0.00 K/uL (0-0.2) 12/14/20 06:21 Immature Gran # (Auto) 0.03 K/uL (0.00-0.02) H 12/14/20 06:21 Sodium 138 mmol/L (136-145) 12/14/20 06:21 Potassium 3.7 mmol/L (3.5-5.1) 12/14/20 06:21 Chloride 104 mmol/L (98-107) 12/14/20 06:21 Carbon Dioxide 25 mmol/L (21-32) 12/14/20 06:21 Anion Gap 9.0 (3-11) 12/14/20 06:21 BUN 25 mg/dl (7-18) H 12/14/20 06:21 Creatinine 1.30 mg/dl (0.6-1.4) 12/14/20 06:21 FOLLOW UP PCP NOTE: Assessment and Plan Assessment and Plan (1) Pleural effusion, right: (2) S/P shoulder replacement: (3) RLS (restless legs syndrome): (4) Hypothyroidism: (5) HTN (hypertension): (6) Hypercholesterolemia: (7) Arthritis: Orders: Orders CT angio chest PE protocol 12/16/20 J90 - Pleural effusion, not elsewhere classified, Z96.619 - Presence of unspecified artificial shoulder joint Basic Metabolic Panel 12/16/20 J90 - Pleural effusion, not elsewhere classified, Z96.619 - Presence of unspecified artificial shoulder joint Complete Blood Count with Diff 12/16/20 J90 - Pleural effusion, not elsewhere classified, Z96.619 - Presence of unspecified artificial shoulder joint Patient Instructions: he is to have his lab work he will have a ct of his chest to rule out pe and pleural effusion. he is to continue with his current meds. keep his appt with ortho he is to call if problems or symptoms worsen. he is to wear his sling. HPI HPI History of Present Illness: patient in for follow up with his . he had his right reverse shoulder arthroplasty on 12/[address] tovar. he was discharged on 12/14. he did have a moderate right pleural effusion on his post op film. he is not having any chest pain or sob. no lightheadedness or dizziness. he is not having any wheezing. no fever or chills. he is not having any calf pain. he goes back to see dr tovar on dec 28. his bowels are moving. no melena or hematochezia. he is not having any urinary symptoms he is wearing his shoulder sling. his stomach is doing well. he has not had any falls. we did review his med list and last labs. Physical Exam Constitutional WD/WN, vitals as above healthy appearing Eyes PERRL, conjunctivae normal, anicteric sclerae ENMT Ears: no TM abnormality Neck trachea midline, no thyromegaly Thyroid: normal thyroid Respiratory normal respiratory effort Auscultation: + wheezes (in right base) Cardiovascular RRR, no murmur, no edema Vessels: posterior tibial pulses present and dorsalis pedis pulses present Extremities: no calf tenderness and no edema Gastrointestinal (Abdomen) normal bowel sounds, soft, nontender, no hepatosplenomegaly Musculoskeletal no cyanosis or clubbing, extremities motor strength 5/5 right shoulder in sling. he would like his dressing changed. his old dressing was removed. his sutures are intact. no redness or purulent drainage. new sterile dressings were applied. normal pulses in right upper extremity. sensation intact. Skin no rashes, warm and dry Neurologic patellar DTR's 2+ bilat, sensation intact and PERRL, EOMI, accommodation nl, no face palsy, no dysarthria normal touch/pain/proprioception, CN's II-XI intact bilaterally, deep tendon reflexes 2+ bilaterally, plantar reflexes intact bilaterally, moves all extremities and awake; no focal motor deficits Psychiatric A+Ox3, euthymic affect Lymphatic no cervical lymphadenopathy Total Time Total Time Spent Total Time Spent (In Minutes): 5 Discharge Plan Discharge Items Patient Disposition: Home - Self-Care Reason For Visit: Osteoarthritis Right Shoulder Discharge Diagnosis: Osteoarthritis Right Shoulder Activity: Per Instructions section Weightbearing: Right non-weightbearing Non-emergency contact: Surgeon Call non-emergency contact if: your pain is not controlled, your temperature is above 101.5, your wound has increased redness and your wound has increased drainage Follow-up/Referrals: Win De Leon DO [Primary Care Provider] - Diet: Regular Addtl Attending Provider Instructions: ACTIVITY RECOMMENDATIONS: SELF CARE INSTRUCTIONS AFTER TOTAL SHOULDER ARTHROPLASTY REVERSE A. You may do daily exercises as taught in physical therapy while in hospital. No lifting with the operative arm. B. You are to wear your sling/immobilizer at all times EXCEPT when performing your daily exercises and for hygiene purposes. C. You may perform dry, daily dressing changes. Please keep your incision covered. You may shower 48 hours after surgery. Do not apply soap or any ointment/lotions directly over incision. Do not soak incision in bath tub/swimming pool. D. You may use ice as needed to operative shoulder. SPECIAL CARE INSTRUCTIONS: VERY IMPORTANT TO READ AND REVIEW A. There are a few signs you need to watch for after you are home. Call [facility] at [phone] if you experience any of the followin. Increased severe shoulder pain. Some pain is expected especially when you exercise. 2. Increased swelling in you shoulder or arm; pain or swelling in either upper extremity. 3. Any fluid drainage from the incision. 4. Shortness of breath or chest pain. B. Please call [facility] at [phone] if you have any questions or concerns about your operation or recovery. C. Call your physician if: 1. Temperature is greater than 101 degrees (F). 2. Pain is not relieved by prescribed pain medications. 3. Increase drainage or redness from incision. 4. Unanswered questions or concerns. FOLLOW UP VISIT: Please call [facility] at [phone] to schedule a follow up appointment with Dr. Tovar or his PA in 12-14 days from your surgery date. Stand-Alone Forms: My [facility] [employer], Smoking Cessation Medications and DC Order Prescriptions: New aspirin [Ecotrin] 325 mg Tablet,Delayed Release (Dr/Ec) 325 mg PO QAM 30 Days Qty: 30 RF: 0 polyethylene glycol 3350 [Miralax] 17 gram powder in packet 17 g PO DAILY PRN (Reason: constipation) Qty: 5 RF: 0 hydrocodone-acetaminophen 5-325 mg tablet 1 - 2 tab PO Q6H MDD 8 tabs PRN (Reason: pain) Qty: 30 RF: 0 Continued cyclobenzaprine 10 mg tablet 10 mg PO DAILY PRN (Reason: muscle spasm) Qty: 90 RF: 0 levothyroxine 50 mcg tablet 50 mcg PO QAM RF: 0 hydrochlorothiazide 25 mg tablet 25 mg PO QAM RF: 0 losartan 100 mg tablet 100 mg PO QAM RF: 0 Discontinued hydrocodone-acetaminophen 5-325 mg tablet 1 tab PO Q8H PRN (Reason: pain) Qty: 14 RF: 0 meloxicam 7.5 mg tablet 7.5 mg PO BID PRN (Reason: pain) Qty: 60 RF: 1 omega [id number] oil [Fish Oil] 1,000 mg (120 mg-180 mg) capsule 1 cap PO QAM RF: 0 glucosamine sulfate 2KCl [Glucosamine Relief] 1,000 mg tablet 2,000 mg PO DAILY RF: 0 Discharge Orders: Discharge Order (Routine); Ordered 12/14/20 Ordered By: Hussein Bailey/Other Patient Handouts: After Reverse Total Shoulder ... Admission Data Admit Date/Time: 12/13/20 19:13 Attending Provider: Lex Tovar Admit Provider: Lex Tovar Primary Care Provider: Win De Leon Other Providers: Zach Ward Kenneth A. Other Interventions: Discharge Summary Assessment (RN) Last Done: 12/14/20 14:14
== END 2020-12-14 15:20 | disposition home or self-care (01) ==
LOC: ASU 12:05 → INTOOBSV 19:13 → 3E 19:13
DX: M12.811 Other specific arthropathies, not elsewhere classified, right shoulder; Z79.891 Long term (current) use of opiate analgesic; E78.00 Pure hypercholesterolemia, unspecified; M75.101 Unspecified rotator cuff tear or rupture of right shoulder, not specified as traumatic; Z79.899 Other long term (current) drug therapy; Z79.82 Long term (current) use of aspirin; I10 Essential (primary) hypertension; M19.011 Primary osteoarthritis, right shoulder; E03.9 Hypothyroidism, unspecified; Z88.0 Allergy status to penicillin; R26.89 Other abnormalities of gait and mobility; G25.81 Restless legs syndrome; S46.211A Strain of muscle, fascia and tendon of other parts of biceps, right arm, initial encounter